=== PATIENT | female | born 2000 | race American Indian/Alaskan Native ===

== ENCOUNTER 2022-01-22 12:34 | Emergency (ER) | payer SELFPAY ==
--- NOTE | 2022-01-22 12:58 | Emergency Department Report ---
Blank Doc - Documentation Documentation: 22-year-old female who presents with vaginal bleeding and pelvic pain. Staed has some vaginal discharge. Stated is currently about 8 weeks . 1- This is a initial triage assessment/medical screening only. Full assessment and work-up will be completed once the patient is in proper hospital gown, ED bed and in a private room setting. This initial assessment/diagnostic orders/clinical plan/ treatment(s) is/are subject to change based on pt's health status, clinical progression and re-assessment by fellow clinical providers in the ED. Further treatment and workup at subsequent clinical providers discretion. Patient/guardians urged not to elope from ED as their condition may be serious if not clinically assessed and managed. 2-UA 3-OB US 4-labs The patient was evaluated in the emergency department for symptoms described in the history of present illness. He/she was evaluated in the context of the global COVID-19 pandemic, which necessitated consideration that the patient might be at risk for infection with the virus that causes COVID-19. Institutional protocols and algorithms that pertain to the evaluation of patients at risk for COVID-19 are in a state of rapid change based on information released by regulatory bodies including the CDC and federal and state organizations. These policies and algorithms were followed during the patient's care in the emergency department. Please note that these policies, procedures and recommendations changed on a rapid basis.
[2022-01-22 14:55] LABS: Basophils % (Auto) 0.2 % (0.0-1.8); Eosinophils % (Auto) 0.2 % (0.0-4.3); Hematocrit 38.3 % (30.3-42.9); Hemoglobin 12.8 gm/dl (10.1-14.3); Lymphocytes # (Auto) 2.1 K/mm3 (1.2-5.4); Lymphocytes % (Auto) 20.6 % (13.4-35.0); Mean Corpuscular HGB Conc 33 % (30-34); Mean Corpuscular Volume 85 fl (79-97); Monocytes # (Auto) 0.4 K/mm3 (0.0-0.8); Monocytes % (Auto) 3.9 % (0.0-7.3); Platelet Count 203 K/mm3 (140-440); Red Cell Distribution Width 13.8 % (13.2-15.2)
[2022-01-22 15:12] LABS: Blood Urea Nitrogen 7 mg/dL (7-17); Calcium 9.6 mg/dL (8.4-10.2); Hemolysis Index 2
[2022-01-22 15:18] LABS: BUN/Creatinine Ratio 14
--- NOTE | 2022-01-22 16:22 | Ultrasound Report ---
ULTRASOUND OBSTETRIC INDICATION / CLINICAL INFORMATION: Pelvic pain and vaginal bleeding. - Clinical Gestational Age (GA) in weeks, days: 9, 5. TECHNIQUE: Transabdominal. COMPARISON: None available. FINDINGS: GESTATIONAL SAC: Well-defined oval shape and intrauterine in location. YOLK SAC: No significant abnormality. EMBRYO/FETUS: No significant abnormality. - [place]-Rump Length = 3.5 cm = 10, 3 weeks, days - Heart Rate, beats per minute (if present) = 166 UTERUS: No significant abnormality. No evidence of implantation hemorrhage. ADNEXA: The right ovary is not visualized. The left ovary measures 4.7 x 3.1 x 4.4 cm and contains a 4.1 cm simple cyst. There is normal blood flow to the left ovary on Doppler exam. There is no evidenc e of an extraovarian mass. FREE FLUID: None. ADDITIONAL FINDINGS: None. IMPRESSION: 1. Single, living intrauterine with estimated sonographic age of 10, 3 weeks, days. 2. 4.1 cm simple left ovarian cyst probably represents the corpus luteum. Signer Name: Gordon Pitts MD Signed: 01/22/2022 4:18 PM Workstation Name: [id number]
--- NOTE | 2022-01-23 01:25 | Emergency Department Report ---
ED Female HPI - General Chief complaint: Vaginal Bleeding Stated complaint: 8-9WKS /ABD PAIN/BLEEDING Time Seen by Provider: 01/22/22 12:55 Source: patient Mode of arrival: Ambulatory Limitations: No Limitations - History of Present Illness Initial comments: Patient is a A0 22-year-old -Irish female who is approximately 9 weeks gestation presents to the ED with complaint of acute onset persistent intermittent vaginal spotting with suprapubic pressure for the last 12 hours. Patient states that the symptoms have been intermittent and persistent and she decided come to the ED for evaluation. Patient denies abdominal pain, nausea, vomiting, fever, chills, dysuria, urinary frequency and urgency, vaginal discharge, chest pain or shortness of breath, cough, headache, sore throat or traumatic injury. MD Complaint: vaginal bleeding, pelvic pain (Pressure) -: Sudden, hour(s) (12) Location: suprapubic, other (Vaginal) Radiation: non-radiating Severity: moderate Severity scale (0 -10): 2 Quality: cramping, dull Consistency: intermittent Improves with: none Worsens with: urination Are you Now?: Yes (About 9 weeks gestation) Associated Symptoms: vaginal bleeding, abdominal pain (Suprapubic pressure). denies: vaginal discharge, nausea/vomiting, fever/chills, headaches, loss of appetite, dysuria, hematuria, rash, seizure - Related Data Sexually active: Yes : 1 Para: 0 A: 0 Previous Rx's Medication Instructions Recorded Last Taken Type Acetaminophen [Tylenol] 500 mg PO Q6HR PRN #40 tablet 01/23/22 Unknown Rx Vit-Fe Fumar-FA [ 1 tab PO QDAY #60 tablet 01/23/22 Unknown Rx Vitamin] Allergies Allergy/AdvReac Type Severity Reaction Status Date / Time No Known Allergies Allergy Verified 01/22/22 12:59 ED Review of Systems ROS: Stated complaint: 8-9WKS /ABD PAIN/BLEEDING Other details as noted in HPI Constitutional: denies: chills, fever Eyes: denies: eye pain, eye discharge, vision change ENT: denies: ear pain, throat pain Respiratory: denies: cough, shortness of breath, wheezing Cardiovascular: denies: chest pain, palpitations Endocrine: no symptoms reported Gastrointestinal: abdominal pain (Suprapubic pressure). denies: nausea, vomiting, diarrhea Genitourinary: abnormal menses (Vaginal bleeding). denies: urgency, dysuria, discharge Musculoskeletal: denies: back pain, joint swelling, arthralgia Skin: denies: rash, lesions Neurological: denies: headache, weakness, paresthesias Psychiatric: denies: anxiety, depression Hematological/Lymphatic: denies: easy bleeding, easy bruising ED Past Medical Hx - Past Medical History Previous Medical History?: No - Surgical History Past Surgical History?: No - Social History Smoking Status: Never Smoker - Medications Home Medications: Home Medications Medication Instructions Recorded Confirmed Last Taken Type Acetaminophen [Tylenol] 500 mg PO Q6HR PRN #40 tablet 01/23/22 Unknown Rx Vit-Fe Fumar-FA [ 1 tab PO QDAY #60 tablet 01/23/22 Unknown Rx Vitamin] ED Physical Exam - General Limitations: No Limitations General appearance: alert, in no apparent distress - Head Head exam: Present: atraumatic, normocephalic, normal inspection - Eye Eye exam: Present: normal appearance, PERRL, EOMI Pupils: Present: normal accommodation - ENT ENT exam: Present: normal exam, normal orophraynx, mucous membranes moist, TM's normal bilaterally, normal external ear exam - Neck Neck exam: Present: normal inspection, full ROM. Absent: tenderness - Respiratory Respiratory exam: Present: normal lung sounds bilaterally. Absent: respiratory distress, wheezes, rales, rhonchi, chest wall tenderness, accessory muscle use, decreased breath sounds, other - Cardiovascular Cardiovascular Exam: Present: regular rate, normal rhythm, normal heart sounds. Absent: systolic murmur, diastolic murmur, rubs, gallop - GI/Abdominal GI/Abdominal exam: Present: soft, normal bowel sounds. Absent: tenderness, guarding, rebound, hyperactive bowel sounds, hypoactive bowel sounds, organomegaly, mass, bruit - Bi-manual exam: Present: other (Pelvic exam deferred at this time) - Extremities Exam Extremities exam: Present: normal inspection, full ROM, normal capillary refill. Absent: tenderness - Back Exam Back exam: Present: normal inspection, full ROM. Absent: tenderness, CVA tenderness (R), CVA tenderness (L), muscle spasm, paraspinal tenderness, vertebral tenderness - Neurological Exam Neurological exam: Present: alert, oriented X3, CN II-XII intact, normal gait, reflexes normal - Psychiatric Psychiatric exam: Present: normal affect, normal mood - Skin Skin exam: Present: warm, dry, intact, normal color. Absent: rash ED Course Vital Signs 01/22/22 12:56 Temperature 98.9 F Pulse Rate 90 Respiratory 14 Rate Blood Pressure 151/102 O2 Sat by Pulse 99 Oximetry ED Medical Decision Making - Lab Data Result diagrams: 01/22/22 14:12 01/22/22 14:12 - Radiology Data Radiology results: report reviewed, image reviewed [facility] [address] [place] [address] Ultrasound Report Signed Patient: LEXIE SKAGGS R#: [id number] : 2000 Acct:[id number] Age/Sex: 22 / F ADM Date: 01/22/22 Loc: ED Attending Dr: Ordering Physician: RUMA WALSH NP Date of Service: 01/22/22 Procedure(s): US OB <= 14 weeks fetus Accession Number(s): [id number] cc: RUMA WALSH NP ULTRASOUND OBSTETRIC INDICATION / CLINICAL INFORMATION: Pelvic pain and vaginal bleeding. - Clinical Gestational Age (GA) in weeks, days: 9, 5. TECHNIQUE: Transabdominal. COMPARISON: None available. FINDINGS: GESTATIONAL SAC: Well-defined oval shape and intrauterine in location. YOLK SAC: No significant abnormality. EMBRYO/FETUS: No significant abnormality. - [place]-Rump Length = 3.5 cm = 10, 3 weeks, days - Heart Rate, beats per minute (if present) = 166 UTERUS: No significant abnormality. No evidence of implantation hemorrhage. ADNEXA: The right ovary is not visualized. The left ovary measures 4.7 x 3.1 x 4.4 cm and contains a 4.1 cm simple cyst. There is normal blood flow to the left ovary on Doppler exam. There is no evidence of an extraovarian mass. FREE FLUID: None. ADDITIONAL FINDINGS: None. IMPRESSION: 1. Single, living intrauterine with estimated sonographic age of 10, 3 weeks, days. 2. 4.1 cm simple left ovarian cyst probably represents the corpus luteum. Signer Name: Gordon Pitts MD Signed: 01/22/2022 4:18 PM Workstation Name: [id number] Transcribed By: RT Dictated By: Gordon Pitts MD Electronically Authenticated By: Gordon Pitts MD Signed Date/Time: 01/22/221617 DD/ 14 TD/TT: - Medical Decision Making This is a A0 22-year-old -Irish female who is approximately 9 weeks gestation presents to the ED with complaint of acute onset persistent intermittent vaginal spotting with suprapubic pressure for the last 12 hours. Patient states that the symptoms have been intermittent and persistent and she decided come to the ED for evaluation. In the ED, patient is alert and oriented x3 and is not in any distress. Patient is hemodynamically stable. All lab test results were reviewed and are all nonactionable including hCG quant of [id number]. Transvaginal ultrasound showed a single, living intrauterine with estimated sonographic age of 10, 3 weeks, days with heart rate of 166 bpm. It also showed a 4.1 cm simple left ovarian cyst probably represents the corpus luteum. Patient was discharged home and advised to maintain a complete pelvic rest devoid of heavy lifting, strenuous physical activity or sexual activity and to take Tylenol as needed for pain. Patient was advised to follow- up with the [employer] physician in 5 to 7 days for reevaluation or return to the ED immediately if symptoms get worse. - Differential Diagnosis Threatened miscarriage; UTI; ovarian cyst; subchorionic bleed; Critical care attestation.: If time is entered above; I have spent that time in minutes in the direct care of this critically ill patient, excluding procedure time. ED Disposition Clinical Impression: Threatened miscarriage, Left ovarian cyst, Vaginal bleeding in patient after first trimester Disposition: 01 HOME / SELF CARE / HOMELESS Is pt being admited?: No Does the pt Need Aspirin: No Condition: Stable Instructions: Threatened Miscarriage, [id number], Vaginal Bleeding During , First Trimester, [id number], Ovarian Cyst, [id number] Additional Instructions: All lab test results were reviewed and are all nonactionable. Transvaginal ultrasound showed a single, living intrauterine with estimated sonographic age of 10, 3 weeks, days with a heart rate of 166 bpm. It also showed a 4.1 cm simple left ovarian cyst probably represents the corpus luteum. Therefore maintain a complete pelvic rest with no strenuous or physical activities, or sexual activities and take Tylenol as needed for pain. Follow-up with the [employer] physician in 5 to 7 days for reevaluation. Return to the ED immediately if symptoms get worse. Prescriptions: Acetaminophen [Tylenol] 500 mg PO Q6HR PRN #40 tablet PRN Reason: Pain , Severe (7-10) Vit-Fe Fumar-FA [ Vitamin] 1 tab PO QDAY #60 tablet Referrals: RAFI COWAN MD [Staff Physician] - 3-5 Days Forms: Work/School Release Form(ED) Time of Disposition: 01:27 Print Language: URDU
[2022-01-23 02:52] VITALS: BP 146/90
== END 2022-01-23 02:00 | disposition home or self-care (01) ==
LOC: ED 12:34
DX: O20.0 Threatened abortion (principal); O20.8 Other hemorrhage in early pregnancy; N83.202 Unspecified ovarian cyst, left side; Z3A.09 9 weeks gestation of pregnancy
CPT/HCPCS: 36415; 76801; 80048; 84702; 85025; 86900; 86901; 99284